=== PATIENT | male | born 1935 | race Caucasian/White ===

== ENCOUNTER 2019-10-15 13:54 | Inpatient (IN) ==
[2019-10-15 14:36] VITALS: BMI 20.2
[2019-10-15 17:03] LABS: BASOPHILS # (AUTO) 0.1 K/uL (0-0.2); BASOPHILS % (AUTO) 0.6 % (0.0-3.0); EOSINOPHILS # (AUTO) 0.2 K/ul (0.0-0.7); EOSINOPHILS % (AUTO) 1.6 % (0.0-7.0); HEMATOCRIT 36.7 % (42.0-52.0); HEMOGLOBIN 11.9 g/dl (14.0-18.0); IMMATURE GRANULOCYTE # (AUTO) 0.1 (0.0-1.0); IMMATURE GRANULOCYTE % (AUTO) 0.7 % (0.0-5.0); LYMPHOCYTES # (AUTO) 1.4 K/uL (0.60-3.4); LYMPHOCYTES % (AUTO) 11.9 (10.0-50.0); MEAN CORPUSCULAR HGB CONC 32.4 (31.8-35.4); MEAN CORPUSCULAR VOLUME 86.4 fl (80.0-94.0); MONOCYTES # (AUTO) 2.9 K/uL (0.4-2.0); MONOCYTES % (AUTO) 24.8 (0-10); NEUTROPHILS % (AUTO) 60.4 % (42.2-75.2); PLATELET COUNT 330 10^3/uL (140-440); RDW COEFFICIENT OF VARIATION 15.9 % (11.6-14.8); RED BLOOD COUNT 4.25 10^6/ul (4.70-6.10); WHITE BLOOD COUNT 11.56 K/ul (4.2-10.2)
[2019-10-15 17:16] LABS: ALANINE AMINOTRANSFERASE 5.8 U/L (0-50); ALBUMIN 3.62 g/dL (3.5-5.0); ALKALINE PHOSPHATASE 85.8 U/L (56-119); ASPARTATE AMINO TRANSFERASE 23.9 U/L (17-59); BILIRUBIN,TOTAL 0.35 mg/dL (0.2-1.3); CALCIUM 9.38 mg/dL (8.4-10.2); CARBON DIOXIDE 28.3 mmol/L (22-30.0); CHLORIDE 103.7 mmol/L (98-107); CREATININE 0.8 mg/dL (0.60-1.10); GLUCOSE 97.2 mg/dL (74-106); POTASSIUM 4.01 mmol/L (3.5-5.1); SODIUM 136.8 mmol/L (134.5-145); TOTAL PROTEIN 6.82 g/dL (6.3-8.2)
[2019-10-15] MEDS: ZOFRAN 4 MG/2 ML IVP PRN (17:30)
[2019-10-15] MEDS: MORPHINE 2 MG/ML SYRINGE IVP PRN ×2 (17:31→20:36)
[2019-10-15 19:42] LABS: BILIRUBIN,URINE Negative (NEGATIVE); CLARITY,URINE Clear (CLEAR); COLOR,URINE Yellow (YELLOW); GLUCOSE, URINE (UA) Negative (NEGATIVE); KETONES,URINE Negative (NEGATIVE); LEUKOCYTE ESTERASE ,URINE Negative (NEGATIVE); NITRITE,URINE Negative (NEGATIVE); PROTEIN,URINE Negative (NEGATIVE); URINE, BLOOD Negative (NEGATIVE); UROBILINOGEN,URINE 0.2 (0.2)
[2019-10-15] MEDS: LOPRESSOR PO SCH (20:31)
[2019-10-15] MEDS: NEURONTIN PO SCH (20:31)
[2019-10-15] MEDS: LOPID PO SCH (20:31)
[2019-10-15] MEDS: TYLENOL #3 TAB PO SCH (20:32)
[2019-10-15] MEDS: SINEMET 25-100 PO SCH (20:32)
[2019-10-15] MEDS: ELIQUIS PO SCH (20:33)
[2019-10-15] MEDS ORDERED: LOPRESSOR PO SCH (21:00)
[2019-10-15] MEDS: XANAX PO SCH (21:49)
[2019-10-16] MEDS: SYNTHROID PO SCH (06:03)
[2019-10-16] MEDS ORDERED: NON-FORMULARY MEDICATION (Levothyroxine 50 MCG) PO SCH (09:00)
[2019-10-16] MEDS ORDERED: FERROUS SULFATE 65 MG PO SCH (09:00)
[2019-10-16] MEDS: RASAGILINE 1 MG PO SCH (09:00)
[2019-10-16] MEDS: LOPID PO SCH ×2 (09:01→20:41)
[2019-10-16] MEDS: FERROUS SULFATE PO SCH (09:01)
[2019-10-16] MEDS: SINEMET 25-100 PO SCH ×3 (09:01→20:37)
[2019-10-16] MEDS: NEURONTIN PO SCH ×3 (09:02→20:38)
[2019-10-16] MEDS: ELIQUIS PO SCH ×2 (09:02→20:39)
[2019-10-16] MEDS: MULTIVITAMIN TABLET PO SCH (09:02)
[2019-10-16] MEDS: LOPRESSOR PO SCH ×2 (09:02→20:37)
[2019-10-16] MEDS: TYLENOL #3 TAB PO SCH (09:02)
[2019-10-16] MEDS: XANAX PO SCH ×2 (09:11→20:37)
[2019-10-16] MEDS ORDERED: PERCOCET 7.5-325 PO PRN (14:20)
[2019-10-16] MEDS: SKELAXIN PO SCH ×3 (15:17→20:41)
--- NOTE | 2019-10-16 15:45 | RS.PTINEVL ---
Subjective - Patient information Date of Evaluation: 10/16/19 Date of Arrival on Unit: 10/15/19 Admitted From:: Home Diagnosis: intractable back pain, muscle weakness Usual Living Arrangement: With Spouse Living Arrangement Comments: lives with 91 y/o spouse Home Environment: House, Stairs (few), Rail Medical History: Arthritis Medical History Comments:: Parkinson's disease, depression, fx of R humerus, hypothyroidism. LATEX ALLERGY?: No Surgical History Comments:: kyphoplasty 10/06/19 Medications: see chart Subjective Information/ Patient Comments:: pt states that he suffered a fall in 03/2019 and sustained a R humerus fracture, vertebral fracture. pt underwent kyphoplasty on 10/06/19. pt has surgery at [facility] and was then sent home with home care. pt reports HH came x 1 and sent him back pt Dr. Goldman and he was admitted there. - Level of function Prior to this admission, the patient could do the following:: Partially Dependent Ambulation Abilities prior to this admission: Since surgery pt states he needs "a little help" with ADL's Current Level of Function: Partially Dependent Current Equipment Used at Home: Cane. walker, potty chair, hospital bed Pain Assessement - Location lumbar pain Description: Tightness, Radiating, Aching Intensity: 2 Pain Alleviating Factors: Medication Interventions - Objective Patient Orientation: Person, Place, Time, Situation Observation: pt seen sitting up in bedside chair. Range of Motion - ROM Right Upper Extremity AROM: Slight limitation (min decreased R shld flex) Left Upper Extremity AROM: WFL's Right Lower Extremity AROM: WFL's Left Lower Extremity AROM: WFL's Muscle Strength - Muscle Strength Right Upper Extremity Strength: Mild Weakness (shld flex 3-/5, elbow flex/ext 4- /5) Left Upper Extremity Strength: Mild Weakness (grossly 4-/5) Right Lower Extremity Strength: Mild Weakness (hip flex 4-/5, knee flex/ext 4/5, ankle DF/PF 4/5) Left Lower Extremity Strength: Mild Weakness (hip flex 4-/5, knee flex/ext 4/5, ankle DF/PF 4/5) Sensation - Sensation Right Upper Extremity Sensation: Intact/Normal Left Upper Extremity Sensation: Intact/Normal Right Lower Extremity Sensation: Intact/Normal Left Lower Extremity Sensation: Intact/Normal Palpation Palpation Findings: Tenderness Comments:: tenderness noted in area of incision , muscle guarding noted in lower thoracic/lumbar paraspinal. Balance - Sitting Balance and Reactions Static Sitting Balance: Good Dynamic Sitting Balance: Good - Standing Balance and Reactions Static Standing Balance: Fair Dynamic Standing Balance: Fair Standing Equilibrium Reactions: Delayed Left, Delayed Right Standing Protective Reactions: Delayed Left, Delayed Right Functional Mobility - Transfers Sit to Stand: Supervision Stand to Sit: Supervision - Safety Awareness Safety Awareness: Fair RODERICK INDEX SCORE: n/a Ambulation - Ambulation Assistive Device Used: Straight Cane Orthotic/Prosthetic Device: No Distance: 140ft Assistance needed with Ambulation: CGA, 1 person assist Gait Deviations: Forward posture, Short stride Treatment time - Time with patient Length of Evaluation: 21 Total treatment time: 26 Patient Education - Education Patient Education: Activity Modification, Education of Plan of Care Teaching Recipient: Patient Teaching Methods: Discussion Comments: discussion with patient regarding dc plans, pain, as well as safety. Assessment - Assessment Problem List:: Decreased level of function, Requires training/education, Decreased safety/Risk of falls, Weakness, Pain limits previous level of function Rehab Potential: Good Further Therapy Indicated?: Yes Candidate for Swing Bed for Therapy Services?: Do no feel pt would be a candidate for swing bed for therapy due to high functional level. Evaluation Complexity: HISTORY: Medium, EXAM OF BODY SYSTEMS: Medium, CLINICAL PRESENTATION: Medium, CLINICAL DECISION MAKING: Medium Patient's Goal(s): return home with . Short Term Goals GOAL #1: pt independent with rolling in bed Goal to be met by: 10/17/19 GOAL #2: pt transfer sup to/from sit CGA Goal to be met by: 10/17/19 GOAL #3: Sit to/from stand SBA to independent Goal to be met by: 10/17/19 GOAL #4: pt amb with cane 150ft with CGA to SBA Goal to be met by: 10/17/19 [employer] Goals GOAL #1: pt transfer sup to/from sit independently, sit to/from stand SBA Goal to be met by: 10/20/19 GOAL #2: pt amb functional household distances with cane SBA Goal to be met by: 10/20/19 GOAL #3: Improved BLE strength 4/5 Goal to be met by: 10/20/19 Plan Plan of Care: Therapeutic EX, Therapeutic Activity Other:: gait training Frequency of Treatment: 1-2 X day, as tolerated Duration of Treatment: 4 days Anticipated Discharge Destination: Home (Feel pt would benefit from home health PT/OT after dc) Treatment Diagnosis (ICD 10 Codes): LBP M54.5. difficulty walking R 26.2 Has the Physician been added for Co-signature?: Yes
[2019-10-17] MEDS: SYNTHROID PO SCH (05:35)
[2019-10-17] MEDS: RASAGILINE 1 MG PO SCH (08:57)
[2019-10-17] MEDS: SKELAXIN PO SCH ×5 (08:58→23:26)
[2019-10-17] MEDS: MILK OF MAGNESIA PO PRN (08:58)
[2019-10-17] MEDS: LOPRESSOR PO SCH ×2 (08:58→21:11)
[2019-10-17] MEDS: MULTIVITAMIN TABLET PO SCH (08:58)
[2019-10-17] MEDS: FERROUS SULFATE PO SCH (08:59)
[2019-10-17] MEDS: SINEMET 25-100 PO SCH ×3 (08:59→21:12)
[2019-10-17] MEDS: NEURONTIN PO SCH ×3 (08:59→21:12)
[2019-10-17] MEDS: LOPID PO SCH ×2 (08:59→21:11)
[2019-10-17] MEDS: XANAX PO SCH ×2 (09:00→21:02)
[2019-10-17] MEDS: ELIQUIS PO SCH ×2 (09:01→21:02)
[2019-10-17] MEDS: LANOXIN PO SCH (09:01)
--- NOTE | 2019-10-17 16:27 | RS.OTINEVL ---
Subjective - Patient information Date of Evaluation: 10/17/19 Date of Arrival on Unit: 10/15/19 Admitted From:: Home Diagnosis: Intractable pain in low back PRECAUTIONS: At risk for falls Usual Living Arrangement: With Spouse Living Arrangement Comments: lives with 91 y/o spouse Home Environment: House, Stairs (few), Rail Medical History: Arthritis Medical History Comments:: Parkinson's disease, depression, fx of R humerus, hypothyroidism. LATEX ALLERGY?: No Surgical History Comments:: kyphoplasty 10/06/19 Medications: see chart Subjective Information/ Patient Comments:: "I have had 6 people in here today. I am tired but we will do what you want to do." - Level of function Prior to this admission, the patient could do the following:: Partially Depe ndent Ambulation Abilities prior to this admission: Pt reports he has not been able to drive the last 3 months. Pt has had too much back pain and is not able to stand more then 25 seconds at a time. Pt reports his helps him with cooking, taking out the trash. Current Level of Function: Partially Dependent Current Equipment Used at Home: Cane. walker, potty chair, hospital bed Pain Assessment - Pain Pain Score: 3 Pain Location Body Site: Back Pain Aggravating Factors: ADL's, Changing Position, Standing, Sitting, Walking Pain Alleviating Factors: Medication, Position Change, Sitting, Lying Supine Interventions - Objective Patient Orientation: Person, Place, Time, Situation Current Interventions: IV's Observation: Pt gets out of bed in a flexed position independently. Pt is CGA for sit to stand from EOB. Pt is minimal assistance for LB dressing, and b athing. Pt is able to walk with a Rolling walker contact guard assistance. Pt has difficulty positioning in the chair. Interventions - ROM Right Upper Extremity AROM: Slight limitation Left Upper Extremity AROM: Slight limitation Comments: Pt posture is somewhat flexed at the hips. - Strength Right Upper Extremity Strength: Mild Weakness Left Upper Extremity Strength: Mild Weakness - Sensation Right Upper Extremity Sensation: Intact/Normal Left Upper Extremity Sensation: Intact/Normal Balance - Sitting Balance Static Sitting Balance: Fair Dynamic Sitting Balance: Fair - Standing Balance Static Standing Balance: Poor Dynamic Standing Balance: Poor ADL Skills - Self Feeding Self Feeding: Independent - Grooming Grooming: CGA - Bathing Bathing UE: Not Tested Bathing LE: Not Tested - Dressing Dressing UE: Independent Dressing LE: Max Assist - Toilet Management Toileting Management: Independent - Comments Comments:: Pt transferred from EOB with RW to chair CGA. Functional Mobility - Bed Mobility Rolling R/L: Independent Scooting: Independent Supine to Sit: Independent Sit to Supine: Independent - Transfers Sit to Stand: CGA Stand to Sit: CGA Stand Pivot Transfers: CGA - Ambulation Weight Bearing Status: FWB Assistive Device Used: Rolling Walker Assistance needed with Ambulation: CGA - Safety Awareness Safety Awareness: Good RODERICK INDEX SCORE: . Additional Treatment Performed - Time with patient Length of Evaluation: 21 Total treatment time: 23 Activities Do you enjoy playing games?: No Would you be interested in leaving your room for activities?: Yes Would you enjoy group activities?: Yes Do you have difficulty with your vision?: Yes Patient Interests:: Watching Television, Visiting/Socializing Patient Education Patient Education: Education of diagnosis, Home Exercise Program, Home Safety, Education of Plan of Care Teaching Recipient: Patient Teaching Methods: Discussion Assessment Problem List:: Decreased level of function, Requires training/education, Decreased safety/Risk of falls, Weakness, Pain limits previous level of function Rehab Potential: Fair Further Therapy Indicated?: Yes Evaluation Complexity: HISTORY: Medium, EXAM OF BODY SYSTEMS: Medium, CLINICAL DECISION MAKING: Medium Patient's Goal(s): To be able to go for more therapy at [facility]. Short Term Goals - Goals GOAL 1: Pt to be able to complete sink level ADLS with RW with SUP. Goal to be met by: 10/20/19 GOAL 2: Pt to increase BUE strength to 4/5. Goal to be met by: 10/20/19 GOAL 3: Pt to tolerate 10 minutes of standing activity to increase safety of ADLs. Goal to be met by: 10/20/19 Inbound Sales Representative Goals GOAL 1: Pt to be able to complete sink level ADLS with RW with SUP. Goal to be met by: 10/24/19 GOAL 2: Pt to increase BUE strength to 4+/5. Goal to be met by: 10/24/19 GOAL 3: Pt to tolerate 20 minutes of standing activity to increase safety of ADLs. Goal to be met by: 10/24/19 Plan Plan of Care: Therapeutic EX, Therapeutic Activity, Self-Care/Home Management Frequency of Treatment: 1-2 X day, as tolerated Duration of Treatment: 1 Week Anticipated Discharge Destination: [facility] Care Facility Treatment Diagnosis (ICD 10 Codes): Z74.1 Need for assistance for self care, M62.81 Muscle weakness. Has the Physician been added for Co-signature?: Yes
[2019-10-18] MEDS: SYNTHROID PO SCH (05:55)
[2019-10-18] MEDS ORDERED: CITRATE OF MAGNESIA PO STA (06:00)
[2019-10-18] MEDS: SINEMET 25-100 PO SCH ×3 (08:23→20:16)
[2019-10-18] MEDS: LOPID PO SCH ×2 (08:23→20:16)
[2019-10-18] MEDS: MULTIVITAMIN TABLET PO SCH (08:23)
[2019-10-18] MEDS: FERROUS SULFATE PO SCH (08:23)
[2019-10-18] MEDS: NEURONTIN PO SCH ×3 (08:24→20:17)
[2019-10-18] MEDS: LOPRESSOR PO SCH ×2 (08:25→20:17)
[2019-10-18] MEDS: ELIQUIS PO SCH ×2 (08:25→20:17)
[2019-10-18] MEDS: RASAGILINE 1 MG PO SCH (08:25)
[2019-10-18] MEDS: XANAX PO SCH ×3 (08:29→21:29)
[2019-10-18] MEDS: SKELAXIN PO SCH ×4 (08:29→22:07)
[2019-10-18] MEDS: ZOFRAN 4 MG/2 ML IVP PRN (09:48)
[2019-10-18] MEDS ORDERED: PERCOCET 5-325 PO PRN (15:39)
[2019-10-18] MEDS ORDERED: NEURONTIN PO STA (17:22)
[2019-10-18] MEDS ORDERED: NEURONTIN PO SCH (21:00)
[2019-10-19] MEDS: SYNTHROID PO SCH (06:03)
[2019-10-19] MEDS: RASAGILINE 1 MG PO SCH (08:22)
[2019-10-19] MEDS: LOPID PO SCH ×2 (08:23→20:46)
[2019-10-19] MEDS: MULTIVITAMIN TABLET PO SCH (08:23)
[2019-10-19] MEDS: SINEMET 25-100 PO SCH ×3 (08:23→20:47)
[2019-10-19] MEDS: FERROUS SULFATE PO SCH (08:23)
[2019-10-19] MEDS: NEURONTIN PO SCH ×3 (08:23→20:46)
[2019-10-19] MEDS: LOPRESSOR PO SCH ×2 (08:23→20:46)
[2019-10-19] MEDS: LANOXIN PO SCH (08:24)
[2019-10-19] MEDS: SKELAXIN PO SCH ×4 (08:24→20:46)
[2019-10-19] MEDS: ELIQUIS PO SCH ×2 (08:25→20:47)
[2019-10-19 18:35] LABS: BASOPHILS # (AUTO) 0.1 K/uL (0-0.2); BASOPHILS % (AUTO) 0.5 % (0.0-3.0); EOSINOPHILS # (AUTO) 0.1 K/ul (0.0-0.7); EOSINOPHILS % (AUTO) 0.7 % (0.0-7.0); HEMATOCRIT 36.4 % (42.0-52.0); HEMOGLOBIN 11.8 g/dl (14.0-18.0); IMMATURE GRANULOCYTE # (AUTO) 0.1 (0.0-1.0); IMMATURE GRANULOCYTE % (AUTO) 0.5 % (0.0-5.0); LYMPHOCYTES # (AUTO) 1.4 K/uL (0.60-3.4); LYMPHOCYTES % (AUTO) 9.8 (10.0-50.0); MEAN CORPUSCULAR HEMOGLOBIN 27.9 pg (27.0-31.0); MEAN CORPUSCULAR HGB CONC 32.4 (31.8-35.4); MEAN CORPUSCULAR VOLUME 86.1 fl (80.0-94.0); MONOCYTES # (AUTO) 2.9 K/uL (0.4-2.0); MONOCYTES % (AUTO) 20.9 (0-10); NEUTROPHILS # (AUTO) 9.5 K/ul (2.0-6.9); NEUTROPHILS % (AUTO) 67.6 % (42.2-75.2); PLATELET COUNT 350 10^3/uL (140-440); RDW COEFFICIENT OF VARIATION 15.9 % (11.6-14.8); RED BLOOD COUNT 4.23 10^6/ul (4.70-6.10); WHITE BLOOD COUNT 14.02 K/ul (4.2-10.2)
[2019-10-19 18:47] LABS: ALANINE AMINOTRANSFERASE 4.6 U/L (0-50); ALBUMIN 3.61 g/dL (3.5-5.0); BILIRUBIN,TOTAL 0.26 mg/dL (0.2-1.3); BLOOD UREA NITROGEN 26.3 mg/dL (9-20); CALCIUM 9.28 mg/dL (8.4-10.2); CARBON DIOXIDE 28.8 mmol/L (22-30.0); CHLORIDE 103.5 mmol/L (98-107); CREATININE 1.11 mg/dL (0.60-1.10); GLUCOSE 119.1 mg/dL (74-106); POTASSIUM 4.32 mmol/L (3.5-5.1); SODIUM 136.9 mmol/L (134.5-145); TOTAL PROTEIN 6.68 g/dL (6.3-8.2)
[2019-10-19] MEDS: XANAX PO SCH (20:46)
[2019-10-20] MEDS: SYNTHROID PO SCH (05:32)
[2019-10-20] MEDS: MILK OF MAGNESIA PO PRN (08:55)
[2019-10-20] MEDS: RASAGILINE 1 MG PO SCH (08:56)
[2019-10-20] MEDS: SKELAXIN PO SCH ×3 (08:56→17:31)
[2019-10-20] MEDS: FERROUS SULFATE PO SCH (08:56)
[2019-10-20] MEDS: SINEMET 25-100 PO SCH ×2 (08:56→15:23)
[2019-10-20] MEDS: LOPID PO SCH (08:56)
[2019-10-20] MEDS: NEURONTIN PO SCH ×2 (08:56→15:23)
[2019-10-20] MEDS: LOPRESSOR PO SCH (08:56)
[2019-10-20] MEDS: MULTIVITAMIN TABLET PO SCH (08:57)
[2019-10-20] MEDS: ELIQUIS PO SCH (08:57)
[2019-10-20 14:39] VITALS: BP 130/78; TEMP 97.9
--- NOTE | 2019-10-20 18:47 | PCM ---
Chief Complaint Chief Complaint: im miserable with my back History of Present Illness History of Present Illness: This is an 84 yr old male with hx of parkinsons dz and afib who sustained a fall in mar of this year. He was found to have a humerus fx and fx of T12.He continues to have pain and recentlyi underwent a kyphoplasty by dr alvarado. He continues to have disabling pain with difficult in standing and is admitted for pain control and eval by physical therapy. Review of Systems Constitutional: Reports Weakness and Loss of appetite Eyes: Reports No symptoms; Denies Blurred vision, Double-vision, Discharge, Itching, Pain, Redness, Photophobia and Other Ears: Reports No symptoms Nose: Reports No symptoms Throat: Reports No symptoms Mouth: Reports No symptoms Respiratory: Reports No symptoms Cardiovascular: Reports Palpitations Gastrointestinal: Reports Constipation Genitourinary: Reports No symptoms Neurological: Reports Weakness, Problems with walking and Tremor Musculoskeletal: Reports Pain Skin: Reports No symptoms Immunology: Reports No symptoms Hematology: Reports No symptoms Endocrine: Reports No symptoms Psychiatric: Reports Depression Habits: Denies Tobacco use, Substance use, Alcohol use and Other Allergies Allergies Allergy/AdvReac Type Severity Reaction Status Date / Time tramadol AdvReac Vomiting Verified 10/15/19 15:52 PFSH Medical History A-fib Anxiety Back fracture Depression Humeral fracture Pacemaker Parkinson disease T12 vertebral fracture Family History FATHER Heart abnormality Mother Heart abnormality Social History Smoking and tobacco status: Former smoker Medications Medications: Medications Generic Name Dose Route Start Last Admin Trade Name Freq PRN Reason Stop Dose Admin Alprazolam 1 mg 10/18/19 21:00 10/19/19 20:46 Xanax PO 1 mg BEDTIME ANAYA Administration Apixaban 5 mg 10/15/19 21:00 10/20/19 08:57 Eliquis PO 5 mg BID ANAYA Administration Carbidopa/Levodopa 1 tab 10/15/19 21:00 10/20/19 15:23 Sinemet 25-100 PO 1 tab TID ANAYA Administration Digoxin 125 mcg 10/17/19 09:00 10/19/19 08:24 Lanoxin PO 125 mcg EVERY OTHER DAY ANAYA Administration Ferrous Sulfate 324 mg 10/16/19 09:00 10/20/19 08:56 Ferrous Sulfate PO 324 mg DAILY ANAYA Administration Gabapentin 100 mg 10/18/19 21:00 10/20/19 15:23 Neurontin PO 100 mg TID ANAYA Administration Gemfibrozil 600 mg 10/15/19 21:00 10/20/19 08:56 Lopid PO 600 mg BID ANAYA Administration Levothyroxine Sodium 50 mcg 10/16/19 06:30 10/20/19 05:32 Synthroid PO 50 mcg QDAC ANAYA Administration Magnesium Hydroxide 30 ml 10/17/19 08:28 10/20/19 08:55 Milk Of Magnesia PO 30 ml DAILY PRN Administration Constipation Metaxalone 800 mg 10/16/19 14:30 10/20/19 17:31 Skelaxin PO 800 mg QID ANAYA Administration Metoprolol Tartrate 50 mg 10/15/19 21:00 10/20/19 08:56 Lopressor PO 50 mg BID [facility] Administration Morphine Sulfate 2 mg 10/15/19 16:29 10/15/19 20:36 Morphine 2 Mg/Ml Syringe IVP 2 mg Q2H PRN Administration Pain Multivitamins 1 tab 10/16/19 09:00 10/20/19 08:57 Multivitamin Tablet PO 1 tab DAILY [facility] Administration Non-Formulary Medication 1 mg 10/16/19 09:00 10/20/19 08:56 Rasagiline PO 1 mg DAILY ANAYA Administration Ondansetron HCl 4 mg 10/15/19 16:30 10/18/19 09:48 Zofran 4 Mg/2 Ml IVP 4 mg Q6H PRN Administration Nausea / Vomiting Oxycodone/Acetaminophen 1 tab 10/18/19 15:39 Percocet 5-325 PO Q6H PRN Pain Sodium Chloride 1 syr 10/16/19 13:00 10/20/19 12:56 Saline Flush IVF 1 syr Q8HR ANAYA Administration Body Composition Height: 5 ft 11 in Weight: 145 lb Body Mass Index (BMI): 20.2 Vital Signs Temperature: 97.9 F Pulse Rate: 69 Respiratory Rate: 16 Blood Pressure: 130/78 O2 Sat by Pulse Oximetry: 97 Physical Examination Appearance: Reports Thin Ill-appearing: None Pain Distress: Moderate Eyes: Reports CORNEL, EOMI and Conjunctiva clear ENT: Reports Ears normal, Nose normal and Oropharynx normal Neck: Supple Respiratory: Reports Airway patent and Breath sounds clear Cardiovascular: Reports Irregular rhythm GI/: Reports Soft, Nontender, No masses and Bowel sounds normal Musculoskeletal: Reports Normal strength and Limited ROM Skin: Reports Warm, Dry and Normal color Neurological: Reports Sensation intact, Motor intact, Reflexes intact, Cranial nerves intact and Alert Psychiatric: Reports Affect appropriate, Mood appropriate, Anxious and Depressed Lab/Tests/Diagnostic Imaging Lab/Tests/Diagnostic Imaging: Lab Review 10/15/19 10/15/19 10/15/19 16:50 16:50 19:07 WBC 11.56 H RBC 4.25 L Hgb 11.9 L Hct 36.7 L MCV 86.4 MCH 28.0 MCHC 32.4 RDW Coeff of Lisa 15.9 H Plt Count 330 Immature Gran % (Auto) 0.7 Neut % (Auto) 60.4 Lymph % (Auto) 11.9 [place] % (Auto) 24.8 H Eos % (Auto) 1.6 Baso % (Auto) 0.6 Neut # (Auto) 7.0 H Lymph # (Auto) 1.4 [place] # (Auto) 2.9 H Eos # (Auto) 0.2 Baso # (Auto) 0.1 Immature Gran # (Auto) 0.1 Sodium 136.8 Potassium 4.01 Chloride 103.7 Carbon Dioxide 28.3 Anion Gap 8.81 BUN 14.0 Creatinine 0.80 Estimated GFR (MDRD) 92.00 BUN/Creatinine Ratio 17.50 Glucose 97.2 Calcium 9.38 Total Bilirubin 0.35 AST 23.9 ALT 5.8 Alkaline Phosphatase 85.8 Total Protein 6.82 Albumin 3.62 Globulin 3.20 Albumin/Globulin Ratio 1.13 Urine Color Yellow Urine Clarity Clear Urine pH 7.0 Ur Specific [place] 1.020 Urine Protein Negative Urine Glucose (UA) Negative Urine Ketones Negative Urine Blood Negative Urine Nitrite Negative Urine Bilirubin Negative Urine Urobilinogen 0.2 Ur Leukocyte Esterase Negative 10/19/19 10/19/19 18:26 18:26 WBC 14.02 H RBC 4.23 L Hgb 11.8 L Hct 36.4 L MCV 86.1 MCH 27.9 MCHC 32.4 RDW Coeff of Lisa 15.9 H Plt Count 350 Immature Gran % (Auto) 0.5 Neut % (Auto) 67.6 Lymph % (Auto) 9.8 L [place] % (Auto) 20.9 H Eos % (Auto) 0.7 Baso % (Auto) 0.5 Neut # (Auto) 9.5 H Lymph # (Auto) 1.4 [place] # (Auto) 2.9 H Eos # (Auto) 0.1 Baso # (Auto) 0.1 Immature Gran # (Auto) 0.1 Sodium 136.9 Potassium 4.32 Chloride 103.5 Carbon Dioxide 28.8 Anion Gap 8.92 BUN 26.3 H Creatinine 1.11 H Estimated GFR (MDRD) 63.00 BUN/Creatinine Ratio 23.69 Glucose 119.1 H Calcium 9.28 Total Bilirubin 0.26 AST 23.0 ALT 4.6 Alkaline Phosphatase 74.0 Total Protein 6.68 Albumin 3.61 Globulin 3.07 Albumin/Globulin Ratio 1.17 Urine Color Urine Clarity Urine pH Ur Specific [place] Urine Protein Urine Glucose (UA) Urine Ketones Urine Blood Urine Nitrite Urine Bilirubin Urine Urobilinogen Ur Leukocyte Esterase Orders Category Date Time Status ADMIT PATIENT INPATIENT .TO [facility] (NON-MONITORED ADMISSION 10/16/19 14:10 Active BED) BOOST ADMINISTRATION SUPPBID CARE 10/16/19 14:43 Active REGULAR DIET DIETARY 10/15/19 Dinner Ordered SUPPLEMENT: BOOST DIETARY 10/16/19 Dinner Ordered CBC W/ AUTO DIFF Routine LAB 10/15/19 16:50 Completed CBC W/ AUTO DIFF Routine LAB 10/19/19 18:26 Completed CMP [COMPREHENSIVE METABOLIC PANEL] Routine LAB 10/15/19 16:50 Completed COMPREHENSIVE METABOLIC PANEL Routine LAB 10/19/19 18:26 Completed UA [URINALYSIS C & S IF INDICATED] Routine LAB 10/15/19 19:07 Completed 0.9 % Sodium Chloride [Saline Flush] MEDS 10/16/19 13:00 Active 1 syr IVF Q8HR Acetaminophen with Codeine [Tylenol #3 Tab] MEDS 10/15/19 21:00 Discontinued 1 tab PO Q12HR Alprazolam [Xanax] MEDS 10/15/19 21:00 Discontinued 0.5 mg PO BID Alprazolam [Xanax] MEDS 10/18/19 21:00 Active 1 mg PO BEDTIME Apixaban [Eliquis] MEDS 10/15/19 21:00 Active 5 mg PO BID Carbidopa/Levodopa [Sinemet 25-100] MEDS 10/15/19 21:00 Active 1 tab PO TID Digoxin [Lanoxin] MEDS 10/17/19 09:00 Active 125 mcg PO EVERY OTHER DAY Ferrous Sulfate MEDS 10/16/19 09:00 Active 324 mg PO DAILY Gabapentin [Neurontin] MEDS 10/18/19 17:22 Discontinued 100 mg PO ONCE STA Gabapentin [Neurontin] MEDS 10/15/19 21:00 Discontinued 100 mg PO TID Gabapentin [Neurontin] MEDS 10/18/19 21:00 Active 100 mg PO TID Gabapentin [Neurontin] MEDS 10/18/19 21:00 Discontinued 100 mg PO TID Gabapentin [Neurontin] MEDS 10/16/19 15:00 Discontinued 300 mg PO TID Gabapentin [Neurontin] MEDS 10/17/19 09:00 Discontinued 300 mg PO TID Gemfibrozil [Lopid] MEDS 10/15/19 21:00 Active 600 mg PO BID Levothyroxine Sodium [Synthroid] MEDS 10/16/19 06:30 Active 50 mcg PO QDAC Magnesium Citrate [Citrate of Magnesia] MEDS 10/18/19 06:00 Discontinued 5 oz PO ONCE STA Magnesium Hydroxide [Milk of Magnesia] MEDS 10/17/19 08:28 Active 30 ml PO DAILY PRN Metaxalone [Skelaxin] MEDS 10/16/19 14:30 Active 800 mg PO QID Metoprolol Tartrate [Lopressor] MEDS 10/15/19 21:00 Active 50 mg PO BID Morphine Sulfate [Morphine 2 mg/ml Syringe] MEDS 10/15/19 16:29 Active 2 mg IVP Q2H PRN Multivitamin [Multivitamin Tablet] MEDS 10/16/19 09:00 Active 1 tab PO DAILY Ondansetron HCl/Pf [Zofran 4 mg/2 ml] MEDS 10/15/19 16:30 Active 4 mg IVP Q6H PRN Oxycodone-Acetaminophe 7.5-325 [Percocet 7.5-325] MEDS 10/16/19 14:20 Discontinued 1 tab PO Q6H PRN Oxycodone-Acetaminophen 5-325 [Percocet 5-325] MEDS 10/18/19 15:39 Active 1 tab PO Q6H PRN rasagiline MEDS 10/16/19 09:00 Active 1 mg PO DAILY RESUSCITATION STATUS Routine OTHERS 10/15/19 14:37 Ordered OT CONSULTATION Routine THERAPIES 10/15/19 16:09 Completed OT CONSULTATION Routine THERAPIES 10/17/19 09:00 Completed PT CONSULT Routine THERAPIES 10/15/19 16:04 Completed PT CONSULT Routine THERAPIES 10/16/19 11:00 Completed PT INPATIENT EVALUATION Routine THERAPIES 10/16/19 16:04 Completed Medications Generic Name Dose Route Start Last Admin Trade Name Rios PRN Reason Stop Dose Admin Alprazolam 1 mg 10/18/19 21:00 10/19/19 20:46 Xanax PO 1 mg BEDTIME ANAYA Administration Apixaban 5 mg 10/15/19 21:00 10/20/19 08:57 Eliquis PO 5 mg BID ANAYA Administration Carbidopa/Levodopa 1 tab 10/15/19 21:00 10/20/19 15:23 Sinemet 25-100 PO 1 tab TID ANAYA Administration Digoxin 125 mcg 10/17/19 09:00 10/19/19 08:24 Lanoxin PO 125 mcg EVERY OTHER DAY ANAYA Administration Ferrous Sulfate 324 mg 10/16/19 09:00 10/20/19 08:56 Ferrous Sulfate PO 324 mg DAILY ANAYA Administration Gabapentin 100 mg 10/18/19 21:00 10/20/19 15:23 Neurontin PO 100 mg TID ANAYA Administration Gemfibrozil 600 mg 10/15/19 21:00 10/20/19 08:56 Lopid PO 600 mg BID ANAYA Administration Levothyroxine Sodium 50 mcg 10/16/19 06:30 10/20/19 05:32 Synthroid PO 50 mcg QDAC ANAYA Administration Magnesium Hydroxide 30 ml 10/17/19 08:28 10/20/19 08:55 Milk Of Magnesia PO 30 ml DAILY PRN Administration Constipation Metaxalone 800 mg 10/16/19 14:30 10/20/19 17:31 Skelaxin PO 800 mg QID ANAYA Administration Metoprolol Tartrate 50 mg 10/15/19 21:00 10/20/19 08:56 Lopressor PO 50 mg BID ANAYA Administration Morphine Sulfate 2 mg 10/15/19 16:29 10/15/19 20:36 Morphine 2 Mg/Ml Syringe IVP 2 mg Q2H PRN Administration Pain Multivitamins 1 tab 10/16/19 09:00 10/20/19 08:57 Multivitamin Tablet PO 1 tab DAILY ANAYA Administration Non-Formulary Medication 1 mg 10/16/19 09:00 10/20/19 08:56 Rasagiline PO 1 mg DAILY ANAYA Administration Ondansetron HCl 4 mg 10/15/19 16:30 10/18/19 09:48 Zofran 4 Mg/2 Ml IVP 4 mg Q6H PRN Administration Nausea / Vomiting Oxycodone/Acetaminophen 1 tab 10/18/19 15:39 Percocet 5-325 PO Q6H PRN Pain Sodium Chloride 1 syr 10/16/19 13:00 10/20/19 12:56 Saline Flush IVF 1 syr Q8HR ANAYA Administration Discontinued Medications Generic Name Dose Route Start Last Admin Trade Name Freq PRN Reason Stop Dose Admin Acetaminophen/Codeine Phosphate 1 tab 10/15/19 21:00 10/16/19 09:02 Tylenol #3 Tab PO 1 tab Q12HR ANAYA Administration Alprazolam 0.5 mg 10/15/19 21:00 10/18/19 09:49 Xanax PO 0.5 mg BID ANAYA Administration Gabapentin 100 mg 10/15/19 21:00 10/16/19 09:02 Neurontin PO 100 mg TID ANAYA Administration Gabapentin 300 mg 10/16/19 15:00 10/16/19 20:38 Neurontin PO 300 mg TID ANAYA Administration Gabapentin 300 mg 10/17/19 09:00 10/18/19 16:04 Neurontin PO Not Given TID ANAYA Gabapentin 100 mg 10/18/19 21:00 Neurontin PO TID ANAYA Gabapentin 100 mg 10/18/19 17:22 10/18/19 17:35 Neurontin PO 10/18/19 17:23 100 mg ONCE STA Administration Magnesium Citrate 5 oz 10/18/19 06:00 10/18/19 06:08 Citrate Of Magnesia PO 10/18/19 06:01 5 oz ONCE STA Administration Oxycodone/Acetaminophen 1 tab 10/16/19 14:20 10/18/19 02:22 Percocet 7.5-325 PO 1 tab Q6H PRN Administration back pain Assessment (1) T12 vertebral fracture: Status: Acute Code(s): S22.089A - Unspecified fracture of T11-T12 vertebra, initial encounter for closed fracture SNOMED Code(s): 945989762 Plan Plan: pain contdrol, continue home meds----physical therapy eval---see orders
--- NOTE | 2019-10-20 18:50 | PCM.DC ---
Final Diagnosis: T12 comp fx, Parkinsons dz, atrial fib (1) T12 vertebral fracture: Status: Acute Code(s): S22.089A - Unspecified fracture of T11-T12 vertebra, initial encounter for closed fracture SNOMED Code(s): 593655381 Medications at Discharge: Ambulatory Orders Medication Instructions Recorded acetaminophen-codeine 1 tab PO Q12HR 10/15/19 alprazolam 0.5 mg PO TID PRN 10/15/19 apixaban 5 mg PO BID 10/15/19 carbidopa-levodopa 25 - 100 tab PO TID 10/15/19 digoxin 125 mcg PO EVERY OTHER DAY 10/15/19 ferrous sulfate [Iron (ferrous 65 mg PO DAILY 10/15/19 sulfate)] gabapentin 100 mg PO TID 10/15/19 gemfibrozil 600 mg PO BID 10/15/19 levothyroxine 50 mcg PO DAILY 10/15/19 metoprolol tartrate 50 mg PO BID 10/15/19 multivitamin [Multiple Vitamins] 1 tab PO DAILY 10/15/19 rasagiline 1 mg PO DAILY 10/15/19
--- NOTE | 2019-11-17 14:51 | DS ---
PRINCIPAL DIAGNOSIS: 1. T12 compression fracture status post Kyphoplasty 2. Scoliosis 3. Atrial fibrillation DISCUSSION: This is an 84 year old gentleman who recently had undergone a kyphoplasty for T12 compression fracture at [facility] in [place]. At home has had increase in pain and his significant other can not attend for his needs at home therefore he was admitted for treatment and evaluation of his low. For further details see History and Physical. CLINICAL COURSE: The patient was admitted to my services. He initially received IV pain medications for pain control and then received Percocet. He was seen by Physical Therapy. He was able to accomplish most activities of daily living but with assistance. He and his life mate had decided upon further rehabilitation therefore he was transferred to [facility] for further rehabilitation and care. CATHLEEN
== END 2019-10-20 19:55 | DRG 948 ==
LOC: MEDSURG B 13:54 → UNDODISIN 10-20 18:49
PROVIDERS: ADMIT Family Medicine; ATTEND Family Medicine